=== PATIENT | female | born 1965 | race Caucasian/White ===

== ENCOUNTER → 2019-06-09 | Outpatient (CLI) | payer OTHER | LOC: LAB 16:00 → LAB SHORT 16:00 | PROVIDERS: Nurse Practitioner Family | DX: Z01.419 Encounter for gynecological examination (general) (routine) without abnormal findings (principal) | CPT/HCPCS: G0145 ==

== ENCOUNTER 2019-10-11 06:53 | Day surgery (SDC) | payer OTHER ==
[~2019-10-11] VITALS: Ht 175.3 cm; Wt 74.7 kg
[~2019-10-11 06:53] MED LIST: LEVO-T75 MCG PO
--- NOTE | 2019-10-11 10:38 | NUR ---
10/11/19 Stephany No LATE ENTRY: PT WAS NOTIFIED THAT PREVIOUS CASE WAS TAKING LONGER, THEN ONCE THE PREVIOUS CASE WAS FINISHED, SHE WAS NOTIFIED THAT AN EMERGENCY PROCEDURE NEEDED TO BE DONE ON A DIFFERENT PATIENT, THE PATIENT WAS FULLY COOPERATVIE AND UNDERSTANDING, SHE WAS GIVEN MAGAZINES, WARM BLANKETS, HER S.O. WAS CALLED TO BE UPDATED.
== END 2019-10-11 14:45 | disposition home or self-care (01) ==
LOC: ORSCSDS 06:53
PROVIDERS: Otolaryngology
PROC: 0GTG0ZZ Resection of Left Thyroid Gland Lobe, Open Approach (ICD-10-PCS; principal; 2019-10-11 08:30)
DX: E04.2 Nontoxic multinodular goiter (principal); J45.909 Unspecified asthma, uncomplicated; E03.9 Hypothyroidism, unspecified; Z79.899 Other long term (current) drug therapy
CPT/HCPCS: 88307; J2250; J2405; J2704; J2710; J2765; J3010; J7120

== ENCOUNTER 2024-09-26 06:27 | Day surgery (SDC) | payer OTHER ==
[~2024-09-26] VITALS: Ht 175.3 cm; Wt 74.3 kg
[2024-09-26] MEDS ORDERED: PROG100 (07:40)
[2024-09-26] MEDS ORDERED: DOTTI1 EA18 (07:40)
[2024-09-26] MEDS ORDERED: ESTRADIOL (ONC1 EA11 (07:41)
[2024-09-26] MEDS ORDERED: [UNRECOGNIZED DRUG - OTHER] (07:42)
[2024-09-26] MEDS ORDERED: CYCL10 (07:42)
[2024-09-26] MEDS ORDERED: Lactated Ringer's 1,000 ML IV ONE ×2 (07:50→09:07)
--- NOTE | 2024-09-26 07:53 | NUR ---
09/26/24 0753 Katya Coffman INJECTED A TOTAL OF 8ML OF LOCAL IN PATIENTS RIGHT HAND. PATIENT TOLERATED WELL.
[2024-09-26] MEDS ORDERED: Midazolam HCl 1MG / ML 2ML Vial ONE (07:55)
[2024-09-26] MEDS ORDERED: propofoL 20 ML IV ONE (07:55)
[2024-09-26 08:44] VITALS: BP 119/88
== END 2024-09-26 08:40 | disposition home or self-care (01) ==
LOC: ORSCSDS 06:27
PROVIDERS: Orthopaedic Surgery
PROC: 01N54ZZ Release Median Nerve, Percutaneous Endoscopic Approach (ICD-10-PCS; principal; 2024-09-26 08:00)
DX: G56.03 Carpal tunnel syndrome, bilateral upper limbs (principal); M19.041 Primary osteoarthritis, right hand; Z79.899 Other long term (current) drug therapy
CPT/HCPCS: J2250; J2704; J7120

== ENCOUNTER 2024-11-28 09:31 | Day surgery (SDC) | payer OTHER ==
[~2024-11-28] VITALS: Ht 175.3 cm; Wt 75.0 kg
[~2024-11-28 09:31] MED LIST changes: +CYCL10; +DOTTI1 EA18; +ESTRADIOL (ONC1 EA11; +NS 500 ML IV ONE; +PROG100; +[UNRECOGNIZED DRUG - OTHER]
[2024-11-28] MEDS ORDERED: NS 500 ML IV ONE (09:45)
--- NOTE | 2024-11-28 10:04 | NUR ---
11/28/24 1004 Pablito Raines, TIMEOUT 1003 [facility]
[2024-11-28] MEDS ORDERED: FentaNYL Citrate 50 MCG/ML 2 ML Injection ONE (10:12)
[2024-11-28] MEDS ORDERED: Dexamethasone Sod Phos 10 MG/ML 1ML VIAL ONE (10:13)
[2024-11-28] MEDS ORDERED: Ondansetron HCl 2 MG / ML 2ML Vial ONE (10:13)
[2024-11-28 11:17] VITALS: BP 115/90
== END 2024-11-28 10:49 | disposition home or self-care (01) ==
LOC: ORSCSDS 09:31
PROVIDERS: Orthopaedic Surgery
PROC: 01N54ZZ Release Median Nerve, Percutaneous Endoscopic Approach (ICD-10-PCS; principal; 2024-11-28 11:00)
DX: G56.02 Carpal tunnel syndrome, left upper limb (principal); E03.9 Hypothyroidism, unspecified; Z79.899 Other long term (current) drug therapy
CPT/HCPCS: J1100; J2405; J3010; J7040